=== PATIENT | male | born 2000 | race Caucasian/White ===

== ENCOUNTER 2022-07-31 16:12 | Outpatient (CLI) | payer SELFPAY ==
[2022-07-31 19:53] LABS: Chlamydia DNA Amplified* NOT DETECTED (No Detected); GC DNA Amplified* NOT DETECTED (No Detected)
== END 2022-07-31 16:13 | disposition home or self-care (01) ==
PROVIDERS: PCP Family Medicine; Visit Provider Family Medicine
DX: Z00.00 Encounter for general adult medical examination without abnormal findings (principal); R35.0 Frequency of micturition
CPT/HCPCS: 87086; 87491; 87591

== ENCOUNTER 2022-12-12 13:23 | Emergency (ER) | payer BC, SELFPAY ==
[2022-12-12 13:27] VITALS: BP 112/73; PULSE 82; RESP 16; TEMP 36.9; O2SAT 98; BMI 23.9
--- NOTE | 2022-12-12 13:44 | CRLHL7_ITS ---
For Patients: As a result of the Century Cures Act, medical imaging exams and procedure reports are released immediately into your electronic medical record. You may view this report before your referring provider. If you have questions, please contact your health care provider. Indication: History of tonsillectomy and adenoidectomy, evaluate for potential peritonsillar abscess Technique: Volumetric multidetector CT images of the cervical soft tissues were obtained after the administration of low osmolar intravenous contrast. 76 cc Isovue 370 low osmolar intravenous contrast Comparison: None available. Findings: The partially visualized brain parenchyma is normal in attenuation without evidence of abnormal enhancement. The orbits and their contents are within normal limits. There is minimal mucosal thickening within the paranasal sinuses. The mastoid air cells are clear. There is mild mucosal hyperemia of the nasopharyngeal mucosa with surgical absence of the adenoids. There is minimal superficial adams pharyngeal mucosal hyperemia without evidence of abscess. There is mild prominence of the lingual tonsil at the base of tongue. No evidence of abscess formation. The deep spaces of the neck are otherwise preserved. The vocal folds are nonthickened with symmetrical appearance. The thyroid gland is normal in attenuation. There are reactive cervical lymph nodes seen within the right jugulodigastric space and posterior triangles. The jugular veins are patent. The carotid arteries demonstrate no significant atherosclerotic narrowing. The lung apices are clear. The cervical vertebral body heights are grossly maintained with minimal endplate Schmorl`s defects. There is mild positional versus spasmodic straightening of the normal cervical lordosis. Impression: Mild mucosal hyperemia of the nasopharyngeal and oropharyngeal mucosa status post adenoidectomy and tonsillectomy without evidence of rim enhancing fluid collection. Mild prominence of the base of tongue consistent with enlargement of the lingual tonsil which may represent mild lingual tonsillitis. No evidence of rim enhancing fluid collection. Reactive cervical lymph nodes in the right greater than left cervical soft tissues are appreciated. Please note that all CT scans at this facility use dose modulation, iterative reconstruction, and/or weight-based dosing when appropriate to reduce radiation dose to as low as reasonably achievable. Dictated by Alexander Bean MD @ 12/12/2022 3:53:15 PM (Electronically Signed)
--- NOTE | 2022-12-12 13:46 | ED.GENADULT ---
HPI - General Adult General Time Seen by Provider: 13:46 Date Seen: 12/12/22 Chief complaint: Sore Throat Stated complaint: NG Strep 12/12 but throat worsening and fever Time Seen by Provider: 12/12/22 13:29 Source: patient Mode of arrival: ambulatory Limitations: no limitations History of Present Illness HPI narrative: Patient is a 22-year-old white male who has had several days of a severe sore throat worse on the right. Seven difficulty swallowing. Feels like he has a ?golf ball in his throat?. The patient had a negative strep test a couple of days ago in urgent care, he status post tonsillectomy. He reports the pain is on his right side. He is able to swallow, he is able to open his mouth fairly fully. No history of recurrent throat infections after his tonsillectomy Related Data Previous Rx's Medication Instructions Recorded cephalexin 500 mg capsule 500 mg PO BID #20 caps 12/12/22 hydrocodone 5 mg-acetaminophen 325 1 tab PO Q8H PRN pain #7 tabs 12/12/22 mg tablet prednisone 20 mg tablet 20 mg PO BID 3 days #6 tabs 12/12/22 Allergies Allergy/AdvReac Type Severity Reaction Status Date / Time No Known Drug Allergies Allergy Verified 12/12/22 13:29 Review of Systems Status of ROS: Reports: 6 or more systems reviewed and unremarkable except as noted in History and below [facility] Medical History Femur fracture Surgical History H/O shoulder surgery History of hip surgery History of placement of ear tubes Social History Smoking Status: Never smoker How often do you have a drink containing alcohol: 2-4 times a month How many standard drinks containing alcohol do you have on a typical day: 1 or 2 How often do you have six or more drinks on one occasion: Less than monthly AUDIT-C Alcohol total score: 3 Non-prescribed substance use: denies use Little interest or pleasure in doing things: nearly every day Feeling down, depressed, or hopeless: more than half the days Exam Narrative: Exam Narrative: Objective: Patient is afebrile with normal vital signs He has no significant trismus, but he does have right-sided throat pain with evidence of significant white ulceration on his right peritonsillar area and some soft soft tissue swelling. Neck is supple with anterior adenopathy on the right full range of motion the neck Neurologic nonfocal grossly Peripheral perfusion is good Const: Vital Signs, click to edit/add: Vital Signs - 24 hr 12/12/22 13:27 Temperature 98.5 F Pulse Rate [Pulse Oximeter] 82 Respiratory Rate 16 Blood Pressure [Ri ght Upper Arm] 112/73 Pulse Oximetry 98 Oxygen Delivery Me thod Room Air Course Vital Signs Vital signs: Initial Vital Signs Temperature 98.5 F 12/12/22 13:27 Temperature Source Temporal Artery Scan 12/12/22 13:27 Pulse Rate 82 12/12/22 13:27 Pulse Rhythm Regular 12/12/22 13:27 Pulse Strength 3+ Normal 12/12/22 13:27 Respiratory Rate 16 12/12/22 13:27 Blood Pressure 112/73 12/12/22 13:27 Blood Pressure Mean 86 12/12/22 13:27 Blood Pressure Position Sitting 12/12/22 13:27 Pulse Oximetry 98 12/12/22 13:27 Oxygen Delivery Method Room Air 12/12/22 13:27 Vital Signs Temperature 98.5 F 12/12/22 13:27 Pulse Rate 82 12/12/22 13:27 Respiratory Rate 16 12/12/22 13:27 Blood Pressure 112/73 12/12/22 13:27 Pulse Oximetry 98 12/12/22 13:27 Oxygen Delivery Method Room Air 12/12/22 13:27 Temperature 98.5 F 12/12/22 13:27 Pulse Rate 82 12/12/22 13:27 Respiratory Rate 16 12/12/22 13:27 Blood Pressure 112/73 12/12/22 13:27 Pulse Oximetry 98 12/12/22 13:27 Oxygen Delivery Method Room Air 12/12/22 13:27 Medical Decision Making MDM Narrative Medical decision making narrative: Patient is a 22-year-old white male with persistent sore throat right-sided status post tonsillectomy. At this point I think could be appropriate to rule out in neck infection given he has continued pain and unilateral pain. Fortunately does not have significant trismus and or inability to swallow. Will get a CT of his neck, IV fluid, IV pain medication, IV Solu-Medrol. Disposition pending findings Lab Data Labs: Lab Results 12/12/22 Range/Units 14:15 WBC 14.88 H (4.50-11.00) K/uL RBC 5.08 (4.30-5.90) m/uL Hgb 15.4 (13.5-17.5) gm/dL Hct 45.7 (37.0-53.0) % MCV 90 (80-100) fL MCH 30 (26-34) pg MCHC 34 (32-36) gm/dL RDW Coeff of Nicole 11.8 (11.5-15.5) % Plt Count 273 (140-440) K/uL Neut % (Auto) 77.4 H (42.0-72.0) % Lymph % (Auto) 12.1 L (20-44) % [place] % (Auto) 8.9 (0.0-11.0) % Eos % (Auto) 1.4 (0.0-7.0) % Baso % (Auto) 0.1 (0.0-3.0) % Neut # (Auto) 11.50 H (1.7-7.0) K/uL Lymph # (Auto) 1.80 (0.90-2.90) K/uL [place] # (Auto) 1.30 H (0.00-0.90) K/UL Eos # (Auto) 0.20 (0.00-0.50) K/uL Baso # (Auto) 0.00 (0.00-0.30) K/uL Sodium 138 (135-149) mmol/L Potassium 3.8 (3.6-5.1) mmol/L Chloride 100 (96-114) mmol/L Carbon Dioxide 31 (20-32) mmol/L BUN 12 (5-24) mg/dL Creatinine 0.9 (0.5-1.5) mg/dL Estimated Creat Clear 122.41 Estimated GFR 125 ml/min Glucose 123 H (60-115) mg/dL Calcium 9.0 (8.4-10.6) mg/dL Discharge Plan Discharge Clinical Impression: Acute tonsillitis Patient Disposition: Home w/ Parent or Adult Condition: Improved Instructions: Tonsillitis (ED) Additional Instructions: Rest, light activity, Keflex 2 times a day for 10 days, prednisone 20 mg b.i.d. times 3 days, [place] as needed for pain. Return to the ED as needed, return to primary care and update next 2-3 days if still persistent symptoms. Activity Level: Light activity Discharge Diet: Regular Prescriptions: New cephalexin 500 mg capsule 500 mg PO BID Qty: 20 0RF prednisone 20 mg tablet 20 mg PO BID 3 Days Qty: 6 0RF hydrocodone-acetaminophen 5-325 mg tablet 1 tab PO Q8H PRN (Reason: pain) Qty: 7 0RF Follow Up/Referrals: Ezekiel Cuenca MD [Primary Care Provider] - Stand Alone Forms: [employer] Info Instructions
[2022-12-12 14:21] LABS: Basophils Percent Auto 0.1 % (0.0-3.0); Eosinophils Percent Auto 1.4 % (0.0-7.0); Hematocrit 45.7 % (37.0-53.0); Hemoglobin* 15.4 gm/dL (13.5-17.5); Immature Granulocytes Pct Auto 0.1 %; Lymphocytes Percent Auto 12.1 % (20-44); Mean Corpuscular HGB Conc 34 gm/dL (32-36); Mean Corpuscular Hemoglobin 30 pg (26-34); Mean Corpuscular Volume 90 fL (80-100); Monocytes Percent Auto 8.9 % (0.0-11.0); Neutrophils Percent Auto 77.4 % (42.0-72.0); Platelet Count* 273 K/uL (140-440); RDW Coefficient of Variation % 11.8 % (11.5-15.5); Red Blood Count 5.08 m/uL (4.30-5.90); White Blood Count* 14.88 K/uL (4.50-11.00)
[2022-12-12 14:25] LABS: Slide Review Reflex No
[2022-12-12] MEDS: 0.9 % SODIUM CHLORIDE 1000 ml 1,000 ML 6000 ML IV (14:26)
[2022-12-12] MEDS: MORPHINE 4 MG/ML INJ 2 MG IVP (14:26)
[2022-12-12] MEDS: METHYLPREDNISOLONE SOD SUCC 62.5 MG/ML (125) 125 MG IVP (14:26)
[2022-12-12 14:45] LABS: Chloride* 100 mmol/L (96-114); Potassium* 3.8 mmol/L (3.6-5.1); Sodium* 138 mmol/L (135-149)
[2022-12-12 14:48] LABS: Blood Urea Nitrogen* 12 mg/dL (5-24); Carbon Dioxide* 31 mmol/L (20-32); Creatinine* 0.9 mg/dL (0.5-1.5); Est. Creatinine Clearance* 122.41; Estimated Glomerular Filt Rate 125 ml/min; Glucose* 123 mg/dL (60-115)
[2022-12-12] MEDS: cephALEXin 500 MG CAPSULE PO (16:07)
== END 2022-12-12 16:10 | disposition home or self-care (01) ==
PROVIDERS: Emergency Provider Family Medicine; PCP Family Medicine
DX: J03.90 Acute tonsillitis, unspecified (principal)
CPT/HCPCS: 36415; 70491; 80048; 85025; 96374; 99284; 99285; A9270; J2270; J2930; J7030; Q9967

== ENCOUNTER 2024-07-29 07:52 | Outpatient (CLI) | payer OTHER, SELFPAY | END 2024-07-29 07:53 | disposition home or self-care (01) | PROVIDERS: PCP Family Medicine; Visit Provider Family Medicine | DX: Z00.00 Encounter for general adult medical examination without abnormal findings (principal); R35.0 Frequency of micturition; R30.0 Dysuria; Z13.6 Encounter for screening for cardiovascular disorders; Z11.3 Encounter for screening for infections with a predominantly sexual mode of transmission | CPT/HCPCS: 80053; 80061; 86701; 86702; 86703; 87491; 87535; 87591 ==